=== PATIENT | male | born 1980 | race Caucasian/White ===

== ENCOUNTER 2017-10-04 22:43 | Emergency (ER) | payer OTHER ==
[~2017-10-04] VITALS: Ht 177.8 cm; Wt 77.1 kg
--- NOTE | 2017-10-04 22:50 | NUR ---
PT TO ER BED 12. PT BIBA#878 FROM HOME, PT C/O N/V/D X 5 HOURS, PT DENIES ABD PAIN. 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 VSS/RESP EVEN UNLABORED/NAD NOTED/SKIN WARM AND DRY/AFEBRILE/AOX4. AWAITING MD LARA.
[2017-10-05] MEDS ORDERED: IV NS 0.9% 1,000 ML BAG IV ONE ×2
--- NOTE | 2017-10-05 00:13 | NUR ---
AT BEDSIDE, PT RESTING QUIETLY. AROUSES EASILY TO VOICE, DENIES N/V AT THIS TIME. VSS. RN WILL CONTINUE TO MONITOR PROVIDING SAFETY/COMFORT MEASURES.
[2017-10-05] MEDS ORDERED: ONDANSETRON HCL/PF 4 MG/2 ML VIAL ONE ×2 (02:07)
--- NOTE | 2017-10-05 02:20 | NUR ---
IV removed. Catheter intact and site benign. Pressure and 4x4 applied to site. No bleeding noted. Patient discharged to home in stable condition. Written and verbal after care instructions given. Patient verbalizes understanding of instruction. Patient ambulatory with a steady gait.
[2017-10-05 02:25] VITALS: BP 117/63
[2017-10-05] MEDS ORDERED: ONDANSETRON HCL/PF 4 MG/2 ML VIAL IV ONE ×2 (02:30)
== END 2017-10-05 02:26 | disposition home or self-care (01) ==
LOC: ER 22:53
DX: E86.0 Dehydration (principal); R19.7 Diarrhea, unspecified; R11.2 Nausea with vomiting, unspecified; M10.9 Gout, unspecified; E03.9 Hypothyroidism, unspecified
CPT/HCPCS: A4606; J2405; J7030; Z7610